=== PATIENT | female | born 1965 | race Caucasian/White ===

== ENCOUNTER 2019-04-29 16:41 | Inpatient (IN) | payer OTHER, SELFPAY ==
[~2019-04-29 16:41] MED LIST: ISOVUE-370 76%-LOCM 1 ML ONE
[2019-04-29 17:35] LABS: #Lymphocytes 2.3 thou/uL (1.20-3.40); #Monocytes 0.6 thou/uL (0.11-0.59); %Basophils 0.1 % (0.0-1.0); %Lymphocytes 29.1 % (21.0-51.0); %Monocytes 7.1 % (0.0-10.0); %Neutrophils 63.7 % (42.0-75.0); Hemoglobin 13.8 g/dL (12.0-16.0); Mean Corpuscular HGB CONC 33.9 g/dL (32.0-36.0); Mean Corpuscular Hemoglobin 37.9 pg (27.0-31.0); Mean Platelet Volume 7.5 fL (7.4-10.4); Platelet Count 306 thou/uL (130-400); RBC Distribution Width 12.7 % (11.5-14.5); Red Blood Cell (RBC) Count 3.63 mill/uL (4.20-5.40); White Blood Cell (WBC) Count 7.8 thou/uL (4.8-10.8)
[2019-04-29 17:46] LABS: MDiff Complete? YES; Macrocytosis SLIGHT = 6-15 cells (100X) (0-5/hpf); Platelet Morphology Comment Appears Adequate
--- NOTE | 2019-04-29 17:49 | CT ---
CT ANGIOGRAM THORAX WITH IV CONTRAST AND 3-D RECONSTRUCTIONS CLINICAL INDICATION: Generalized weakness. History of cancer with 40 pound weight loss over past year. COMPARISON: None FINDINGS: Pulmonary arteries: No filling defects are seen in the pulmonary arteries to suggest a pulmonary embo mattie. Aorta: The aorta is normal in caliber without evidence of an aortic dissection. Vascular calcificatio ns are seen scattered within the thoracic aorta. There is mild thickening of the camp[place] of the most proximal abdominal aorta at the level of the celiac axis and SMA origins which may be related to prom inent atherosclerotic plaque as opposed to vasculitis. There is no periaortic inflammatory changes seen. Lungs: Linear scarring versus atelectasis is present at each lung base. A calcified granuloma is seen in the right upper lobe. No discrete noncalcified pulmonary nodule, mass, or pleural effusion is seen bilaterally. Mediastinum: There is suggestion of minimal nonspecific thickening of the camp[place] of the mid and distal thoracic esophagus. Thyroid gland: A 10 mm hypodense nodule is seen in the right lobe of the thyroid gland. Osseous structures: There is a compression fracture involving the T8 vertebral body of indeterminate age. No suspicious lytic or sclerotic osseous lesions are identified. Chest wall: No abnormality visualized. Upper abdomen: Liver demonstrates diminished attenuation suggesting diffuse fatty infiltration. Calci fied granuloma is seen in the dome of the liver. Colonic diverticulosis is seen at the splenic flexure. IMPRESSION: 1. No CT evidence of a pulmonary embolus. 2. Nonspecific minimal thickening of the mid and distal esophagus. Been on clinical concern, endoscop y or esophagram on nonemergent basis can be performed. 3. Nodule right lobe of thyroid gland. Nonemergent thyroid ultrasound is recommended. 4. Fatty infiltration of the liver. 5. Colonic diverticulosis. 6. Indeterminate age compression fracture of the T8 vertebral body.
[2019-04-29 17:53] LABS: ALT (SGPT) 35 U/L (8-55); AST (SGOT) 52 U/L (5-34); Albumin 2.7 g/dL (3.5-5.0); Alkaline Phosphatase 127 U/L (40-110); Anion Gap 15 mmol/L (10-20); BUN (Urea Nitrogen) 5 mg/dL (9.8-20.1); Bilirubin, Total 0.8 mg/dL (0.2-1.2); CK (CPK) 28 U/L (29-168); Calc. Creatinine Clearance 0 mL/min (70-130); Carbon Dioxide 28 mmol/L (22-29); Chloride 76 mmol/L (98-107); Estimated GFR-MDRD Greater than 90; Globulin 3.3 g/dL (2.4-3.5); Glucose 83 mg/dL (70-105); Lipase 13 U/L (8-78)
[2019-04-29 18:04] LABS: Potassium 2.7 mmol/L (3.5-5.1); Sodium 116 mmol/L (136-145)
[2019-04-29] MEDS ORDERED: D5 1/2 NS w/20 mEq KCL 1,000 ML IV SCH (18:45)
[2019-04-29 18:50] LABS: Sodium 121 mmol/L (136-145)
[2019-04-29] MEDS ORDERED: Nicotine 14 MG PATCH ONE (20:03)
[2019-04-29 20:10] LABS: Bilirubin Negative (Negative); Blood, Urine Negative (Negative); Clarity Clear (Clear); Glucose, Urine (Dipstick) Normal (Negative); Leukocyte 75 Leu/uL (Negative); Nitrite Negative (Negative); Protein, Urine (Dipstick) Negative (Neg-Trace); RBC/HPF 0-3 HPF (0-3); Urobilinogen 6 mg/dL (Less than 2)
[2019-04-29 20:20] LABS: Bacteria/HPF 4+ HPF (None Seen)
[2019-04-29] MEDS: Nicotine 14 MG PATCH TD SCH (20:26)
[2019-04-29 22:30] LABS: Anion Gap 13 mmol/L (10-20); BUN (Urea Nitrogen) 5 mg/dL (9.8-20.1); Calc. Creatinine Clearance 0 mL/min (70-130); Calcium 7.2 mg/dL (7.8-10.44); Carbon Dioxide 26 mmol/L (22-29); Chloride 87 mmol/L (98-107); Estimated GFR-MDRD Greater than 90; Glucose 84 mg/dL (70-105); Sodium 123 mmol/L (136-145)
[2019-04-29 22:33] LABS: Potassium 2.5 mmol/L (3.5-5.1)
[2019-04-29] MEDS ORDERED: Potassium Chloride 20 MEQ TAB ONE (22:40)
[2019-04-30] MEDS ORDERED: hydrALAZINE 20 MG/ML VIAL SLOW IVP PRN (00:18)
[2019-04-30] MEDS ORDERED: Nicotine 14 MG PATCH TD SCH (00:18)
[2019-04-30] MEDS ORDERED: Dextrose 5% in Water 1,000 ML IV SCH (00:18)
[2019-04-30] MEDS ORDERED: Potassium Chloride 20 MEQ TAB PO SCH ×2 (00:18→12:00)
[2019-04-30] MEDS ORDERED: Acetaminophen 325 MG TAB ONE (00:22)
[2019-04-30] MEDS ORDERED: Magnesium 2 GM/50 ML 2 GM in Premix Bag 1 BAG IVPB SCH (00:30)
[2019-04-30] MEDS: Acetaminophen 325 MG TAB PO PRN (00:30)
[2019-04-30] MEDS ORDERED: Magnesium 2 GM/50 ML BAG (IN WATER) ONE (01:47)
[2019-04-30 01:53] LABS: Chloride 88 mmol/L (98-107); Sodium 120 mmol/L (136-145)
[2019-04-30 01:54] LABS: Calcium 7.1 mg/dL (7.8-10.44); Glucose 89 mg/dL (70-105)
[2019-04-30 01:56] LABS: Anion Gap 11 mmol/L (10-20); Carbon Dioxide 24 mmol/L (22-29)
[2019-04-30 01:58] LABS: BUN (Urea Nitrogen) Less than 4 mg/dL (9.8-20.1); Calc. Creatinine Clearance 0 mL/min (70-130); Estimated GFR-MDRD Greater than 90
--- NOTE | 2019-04-30 01:59 | HP ---
The patient is more or less in between doctors. She sees Dr. Scott, but she has not seen him in 2 years. CHIEF COMPLAINT: I just got weak and could not walk. HISTORY OF PRESENT ILLNESS: Ms. Laughlin is a pleasant 53-year-old female, who has no known past medical history. She says that she got weak and had difficulty walking and said that this started several weeks ago. She says that she has been getting progressively weaker to the point where she could barely walk to the kitchen and back. As a result, she has not been eating. She says that she has a poor appetite on top of this and says that at night, she has been having problems with nausea and vomiting and says that she will sometimes sit up at night and throw up several times, she says it is more like gagging. She denies any abdominal pain however, but does admit to having some loose stools, but no blood in the stools. She denies any dysphagia or odynophagia or any early satiety. She says that since this has happened, she has lost about 50 pounds. She says that she used to weigh 140, but now she weighs 93 pounds. As a result of her being severely weak, she called for an ambulance and brought her to the hospital. There, she was found to have a sodium of 116 and a potassium of 2.7, and she is being admitted for further evaluation. REVIEW OF SYSTEMS: All systems were reviewed and are negative except for that mentioned in the history of present illness. PAST MEDICAL HISTORY: Negative. PAST SURGICAL HISTORY: She has had a hysterectomy, a bladder resection as well as a tumor removed. ALLERGIES: NO KNOWN DRUG ALLERGIES. SOCIAL HISTORY: She is . She is a smoker and she smokes about a pack a day for the last 40 years. She occasionally drinks wine. She lives with her daughter and is a full code. She would like her sister, Madison Brannon to be her surrogate decision maker. FAMILY HISTORY: Significant for diabetes mellitus and hypertension. CURRENT MEDICATIONS: None. PHYSICAL EXAMINATION: GENERAL: She is alert and oriented, in no acute distress. VITAL SIGNS: Blood pressure is 98/60, heart rate is in the 90s, respiratory rate of 16, and she is afebrile. She is very cachectic in appearance. HEENT: Her pupils are equal, round, and reactive. Extraocular muscles are intact. Sclerae anicteric. Throat, no erythema, no exudates. NECK: No adenopathy. No bruits. LUNGS: Clear to auscultation. There is no wheezing, no rales, no rhonchi. CARDIOVASCULAR: She has a normal S1 and S2. There is no S3 or S4. No murmurs, clicks, or rubs. ABDOMEN: Soft, nontender, and nondistended. Positive for bowel sounds. No rebound or guarding. EXTREMITIES: There is no clubbing, cyanosis, or edema. She has significant muscle atrophy. NEUROLOGIC: Her cranial nerves are intact. Muscle strength is 5/5. SKIN AND INTEGUMENT: No skin changes. No rash. LABORATORY DATA: Her sodium is 116, potassium 2.7, chloride is 76, CO2 is 28, BUN of 5, creatinine 0.57, glucose is 83, alkaline phosphatase 127. Her white blood cell count 7.8, hemoglobin 13.8, hematocrit is 40.7, and platelet count is 306. She had a CT angiogram of the chest, which was negative for pulmonary embolus. There was some thickening in the mid to distal esophagus and a nodule in the right lobe of thyroid and evidence of fatty infiltration of the liver. ASSESSMENT: 1. This is a 53-year-old female, who is being admitted for severe hyponatremia as well as hypokalemia and weight loss. She will be admitted to [facility] given the degree of hyponatremia that she presented with initially. We will consult Nephrology and get urine and serum osmolality as well as urine sodium and Cortrosyn stim test in the a.m. Right now, we will place her on normal saline at a low rate. She has been given a liter of saline in the ER and her sodium has gone up to 121; therefore, we will place her on normal saline at a minimum rate until we can get further results from her urine and serum osmolality and also to be sure that we do not correct her too rapidly. We will also consult Nephrology to aid in the sodium correction. 2. Weight loss and nausea and vomiting. We will consult Gastroenterology to help evaluate this. 3. Hypokalemia. This is likely due to poor oral intake. We will go ahead and replace the potassium. 4. Protein calorie malnutrition of the moderate degree. Once she is clinically more stable, we will institute nutritional supplementation and get a dietitian consult. Job ID: [id number]
[2019-04-30 03:57] LABS: #Basophils 0.1 thou/uL (0.0-0.2); #Lymphocytes 2.2 thou/uL (1.20-3.40); #Monocytes 0.6 thou/uL (0.11-0.59); #Neutrophils 3.1 thou/uL (1.40-6.50); %Basophils 1.1 % (0.0-1.0); %Eosinophils 0.2 % (0.0-10.0); %Lymphocytes 36.6 % (21.0-51.0); %Monocytes 9.4 % (0.0-10.0); %Neutrophils 52.7 % (42.0-75.0); Hemoglobin 10.6 g/dL (12.0-16.0); Mean Corpuscular HGB CONC 35.5 g/dL (32.0-36.0); Mean Corpuscular Hemoglobin 39.3 pg (27.0-31.0); Mean Platelet Volume 7.3 fL (7.4-10.4); Platelet Count 246 thou/uL (130-400); RBC Distribution Width 12.7 % (11.5-14.5); Red Blood Cell (RBC) Count 2.71 mill/uL (4.20-5.40); White Blood Cell (WBC) Count 5.9 thou/uL (4.8-10.8)
[2019-04-30 04:13] LABS: Anion Gap 11 mmol/L (10-20); BUN (Urea Nitrogen) 5 mg/dL (9.8-20.1); Calc. Creatinine Clearance 0 mL/min (70-130); Carbon Dioxide 23 mmol/L (22-29); Chloride 88 mmol/L (98-107); Estimated GFR-MDRD Greater than 90; Glucose 91 mg/dL (70-105); Magnesium 2.4 mg/dL (1.6-2.6); Phosphorus 1.9 mg/dL (2.3-4.7); Potassium 3.1 mmol/L (3.5-5.1)
[2019-04-30 04:18] LABS: Sodium 119 mmol/L (136-145)
[2019-04-30] MEDS ORDERED: Cosyntropin 250 MCG VIAL SLOW IVP SCH ×2 (07:00→17:15)
[2019-04-30 08:04] LABS: Sodium 121 mmol/L (136-145)
[2019-04-30] MEDS ORDERED: FLU VACC QS2019-20(6MOS UP)/PF 60 MCG/0.5 ML SYRINGE IM ONE (09:45)
--- NOTE | 2019-04-30 09:49 | PDOC.HOSPP ---
- Subjective Encounter Date: 04/30/19 Encounter Time: 09:48 Subjective: Mr. Laughlin was seen today in follow-up of hyponatremia. She is awake and alert and oriented. She says she does not feel much better today than yesterday. She had a little gagging last night. - Objective Vital Signs & Weight: Weight Weight 95 lb 6.4 oz Result Diagrams: 04/30/19 03:42 04/30/19 06:46 Hospitalist ROS - Medication Medications: Active Medications Generic Name Dose Route Start Last Admin Trade Name Freq PRN Reason Stop Dose Admin Acetaminophen 650 mg 04/30/19 00:18 04/30/19 00:30 Tylenol PO 650 mg Q4H PRN Administration Headache/Fever/Mild Pain (1-3) Nicotine 14 mg 04/29/19 21:00 04/29/19 20:26 Nicoderm Patch TD 14 mg Q24HR KAITLYNN Administration - Exam Eye: PERRL Heart: RRR, no murmur, no gallops, no rubs, normal peripheral pulses Respiratory: CTAB, no wheezes, no rales, no ronchi, normal chest expansion, no tachypnea, normal percussion Gastrointestinal: soft, non-tender, non-distended, normal bowel sounds, no palpable masses, no hepatomegaly, no splenomegaly Extremities: no cyanosis Hosp A/P (1) Hyponatremia Code(s): E87.1 - HYPO-OSMOLALITY AND HYPONATREMIA Status: Acute (2) Weight loss Status: Acute (3) Nausea and vomiting Code(s): R11.2 - NAUSEA WITH VOMITING, UNSPECIFIED Status: Chronic (4) Hypokalemia Code(s): E87.6 - HYPOKALEMIA Status: Acute - Plan * Hyponatremia- suspected due to volume depletion from poor oral intake over the past month vs. SIADH ( await the urine osmol, and urine sodium results) * Serum sodium has improved- will continue as per Nephrology- IV fluids are on hold for now * Nausea and vomiting and weight loss- she had some esophageal thickening on CT scan of the abdomen * Hypokalemia- continue to replace with oral potassium * Await GI evaluation
[2019-04-30] MEDS: K-Phos Neutral 250 MG TAB PO SCH ×3 (09:50→18:14)
[2019-04-30] MEDS ORDERED: Diazepam 5 MG TAB PO PRN (10:52)
[2019-04-30 10:56] LABS: Anion Gap 12 mmol/L (10-20); BUN (Urea Nitrogen) 5 mg/dL (9.8-20.1); Calc. Creatinine Clearance 100 mL/min (70-130); Calcium 7.4 mg/dL (7.8-10.44); Carbon Dioxide 24 mmol/L (22-29); Chloride 92 mmol/L (98-107); Estimated GFR-MDRD Greater than 90; Glucose 85 mg/dL (70-105); Sodium 125 mmol/L (136-145)
[2019-04-30] MEDS ORDERED: Thiamine HCl 200 MG/2 ML VIAL IM SCH (11:00)
[2019-04-30] MEDS ORDERED: Diazepam 5 MG TAB PO SCH (11:00)
[2019-04-30 11:02] LABS: Phosphorus 1.6 mg/dL (2.3-4.7); Potassium 2.9 mmol/L (3.5-5.1)
--- NOTE | 2019-04-30 11:32 | CON ---
DATE OF CONSULTATION: 04/29/2019 TIME OF CONSULTATION: 6:00 p.m. REASON FOR CONSULTATION: Hyponatremia. HISTORY OF PRESENT ILLNESS: This is a very pleasant 53-year-old female who presented to the hospital today with complaint of weakness. The patient was noted to have a sodium of 116, so I was consulted. The patient has a history of alcohol abuse as well as drinking excessive amount of fluids. The patient denies headache, numbness, tingling, or weakness. Has lost significant weight. PAST MEDICAL HISTORY: Significant for alcohol abuse, history of hysterectomy, bladder resection, tumor removal. SOCIAL HISTORY: alcohol and smoking positive. ALLERGIES: REVIEWED. HOME MEDICATIONS: List reviewed. FAMILY HISTORY: Negative for ESRD. REVIEW OF SYSTEMS: 15-point review of system was performed and negative except for positives noted above. GENERAL: HEAD: NECK: No swelling or lumps. NOSE: No epistaxis or discharge. EYES: No diplopia or pain. RESPIRATORY: CARDIOVASCULAR: GASTROINTESTINAL: /PLASTERER TENDER: MUSCULOSKELETAL: No joint pain. NEUROPSYCHIATIC SYSTEMS: No suicidal ideation. No ideation. SKIN: Denies any rash or ulcer. CONSTITUTIONAL: No fever or chills. PHYSICAL EXAMINATION: GENERAL: The patient was awake, alert. VITAL SIGNS: Pulse 70, breathing 16, blood pressure was 100/70. GENERAL APPEARANCE AND MENTAL STATUS: Fair. HEAD/NECK: Normocephalic. Atraumatic. EYES: EOMI. No deformity. EARS: Clear. No ulcers. NOSE: Intact. No lesions. MOUTH: Clear. No discharge. THROAT: Clear. No exudate. LUNGS: Clear. No crackles. CARDIAC: S1, S2. No rub. ABDOMEN: Benign. Bowel sounds positive. GENITALIA/RECTUM: Ann absent. BACK/EXTREMITIES: Edema 0+. NEUROLOGICAL: Alert and motor intact. SKIN: LYMPHATICS: LABORATORY DATA: Sodium at the time of my consultation was 121. ASSESSMENT: 1. The patient had already received 1 L of normal saline as well as lactated Ringer. Please note the time of consultation was at 6:00 p.m. The patient was also hypophosphatemic, so at this time, I would recommend stopping all normal saline starting the patient on D5 water to lower the rate of correction to less than 6 mEq in 24 hours. This was discussed with the primary team and the emergency room doctor as well. 2. Alcohol abuse. Would recommend high-protein diet. 3. Hypokalemia. Would recommend aggressive potassium replacement. 4. Hypomagnesemia. Would recommend phosphorus and magnesium replacement. Overall prognosis is poor. Job ID: [id number]
--- NOTE | 2019-04-30 11:44 | PRG ---
DATE OF SERVICE: SUBJECTIVE: A 53-year-old female being seen for hyponatremia. The patient denied nausea, vomiting, or chest pain. OBJECTIVE: GENERAL: The patient is awake and alert. VITAL SIGNS: Pulse 75, breathing 16, blood pressure 100/70. GENERAL APPEARANCE AND MENTAL STATUS: Fair. HEAD/NECK: Normocephalic. Atraumatic. EYES: EOMI. No deformity. EARS: Clear. No ulcers. NOSE: Intact. No lesions. MOUTH: Clear. No discharge. THROAT: Clear. No exudate. LUNGS: Clear. No crackles. CARDIAC: S1, S2. No rub. ABDOMEN: Benign. Bowel sounds positive. GENITALIA/RECTUM: Ann absent. BACK/EXTREMITIES: Edema 0+. NEUROLOGICAL: Alert and motor intact. SKIN: LYMPHATICS: LABORATORY DATA: Labs showed hemoglobin . Creatinine 0.44. ASSESSMENT AND PLAN: 1. Hyponatremia, acute. We will try to lower the rate of correction to less than 10 mEq in 24 hours, which has been done. We will start the patient on D5 water to keep the sodium low. 2. Hypokalemia, recommend aggressive replacement. Hypophosphatemia because of alcohol use. Recommend high phosphorus replacement diet. No indication for hypertonic saline. Would discontinue fluid restriction. Job ID: [id number]
[2019-04-30] MEDS: Enoxaparin Sodium 30 MG/0.3 ML SYRINGE SC SCH (11:46)
[2019-04-30] MEDS ORDERED: PHOS-NAK 1 PKT PACK PO SCH (12:00)
[2019-04-30] MEDS: Dextrose 5% in Water 1,000 ML IV SCH (12:52)
--- NOTE | 2019-04-30 15:27 | CON ---
DATE OF CONSULTATION: HISTORY OF PRESENT ILLNESS: The patient is a 53-year-old female from [place], [place], who sees Dr. Scott, presented with weakness of some months' duration. No nausea or vomiting. No diarrhea. No bloody stools. Pack-a-day smoker for almost 40 years. No previous history of TB, pneumonia, or bronchial asthma. She states she has lost considerable weight at least 40+ pounds. In the ER, she was found to have serum sodium of 116. Apparently, Nephrology was consulted last night. It appears that they gave several lactated Ringer, though this morning, she is on no IV fluids and her serum sodium is 121. She denies any coughing or wheezing or chest pain. PAST SURGICAL HISTORY: Hysterectomy. CHRONIC MEDICATIONS: None. ALLERGIES: NONE. SOCIAL HISTORY: Lives in home with a daughter. REVIEW OF SYSTEMS: Ten-point negative. It is pertinent mainly for poor appetite. PHYSICAL EXAMINATION: VITAL SIGNS: Temperature 98, blood pressure 146/71, pulse 91, respiratory rate 18, sats 97% on room air. CHEST: No wheezing or crackles. CARDIAC: Normal S1 and S2. No gallops. ABDOMEN: Soft. LABORATORY DATA: Platelet count is normal. H and H 10 and 30. ASSESSMENT: 1. Severe hyponatremia, probably syndrome of inappropriate secretion, appropriate studies have been ordered. Awaiting urine sodium, cortisol level. Thyroid function is normal number. 2. Tobacco abuse, probably chronic obstructive pulmonary disease. Abnormal CT of chest, suggestive of some kind of a nonspecific thickening of the esophagus. PLAN: Pulmonary at this stage, agree with GI consultation, supportive care, PT, serial exam. Nephrology is being consulted who will probably address the serum sodium. We will follow while in the MICU. Consultation note, 70 minutes, 50% direct patient care. Job ID: [id number]
[2019-04-30 17:24] LABS: Anion Gap 6 mmol/L (10-20); BUN (Urea Nitrogen) 5 mg/dL (9.8-20.1); Calc. Creatinine Clearance 86 mL/min (70-130); Calcium 7.3 mg/dL (7.8-10.44); Carbon Dioxide 28 mmol/L (22-29); Chloride 91 mmol/L (98-107); Estimated GFR-MDRD Greater than 90; Glucose 103 mg/dL (70-105); Iron 60 ug/dL (50-170); Iron Binding Capacity, Total 96 mcg/dL (265-497); Potassium 3.2 mmol/L (3.5-5.1); Sodium 122 mmol/L (136-145)
[2019-04-30 17:27] LABS: Phosphorus 1.7 mg/dL (2.3-4.7)
[2019-04-30] MEDS: Pantoprazole 40 MG VIAL IVP SCH (17:57)
[2019-04-30] MEDS: Ondansetron ODT 4 MG TAB PO PRN (17:57)
--- NOTE | 2019-04-30 18:09 | CON ---
DATE OF CONSULTATION: I was asked to see Erendira Laughlin related for failure to thrive, occasional spitting up. Ms. Laughlin is 53-year-old female, who lives with her daughter and grandchildren in [place], [place], who reports she came to the emergency room because she just began to feel so weak. She estimates over the past couple of months, she has not really eaten well, but really looking back over the past year, she has eaten poorly. She notes that she drinks about 3 to 4 glasses of wine a day and drinks some milk and that is about it. When asked her when the last time she has had a real meal, she cannot remember. She also smokes a pack of cigarettes per day. In general, she feels fatigued. She feels weak. She feels tired and cannot do very much. She told the emergency room that she came in mainly for loss of weight about 40 pounds over the past year. Her main symptoms are weight loss, generalized weakness. No appetite. She denies any abdominal pain with eating, melena, hematochezia, or hematemesis. She has chronic cough. She spits up quite a bit, but she cannot eat. She can hold on liquids just fine. She does not really eat solids very much, states mainly because she does not have an appetite. PAST MEDICAL HISTORY: None known. MEDICATIONS: Home medications: None. Medications here; 1. Tylenol. 2. Lovenox. 3. Folic acid. 4. Apresoline. 5. Multivitamin. 6. Magnesium oxide. 7. Nicotine patch. 8. Zofran. 9. K-Phos. 10. Thiamine. ALLERGIES: NONE. PAST SURGICAL HISTORY: History of hysterectomy for fibroid uterus. SOCIAL HISTORY: A pack per day since she was 9 years old. Alcohol, wine at least 3 glasses of wine per day. Denies drinking other alcohol. She denies using drugs. REVIEW OF SYSTEMS: Please note, persistence of heart burn. PHYSICAL EXAMINATION: GENERAL: She is thin. She has temporal wasting. She is resting in bed. VITAL SIGNS: Her pulse is 112 at 1300 hours and is 94 at 1400 hours, blood pressure 99/64, and respirations 20. HEENT: Oropharynx without no lesions. There is no thrush. NECK: Supple without adenopathy. LUNGS: Clear. Decreased breath sounds at the bases. HEART: Regular rate and rhythm. ABDOMEN: Soft and nontender without any palpable hepatosplenomegaly. BREASTS: Reveal no masses or lesions. She has no axillary masses or nodes. She has no supra or infraclavicular adenopathy. She has no inguinal adenopathy. EXTREMITIES: No clubbing, cyanosis, or edema. She has good notable muscle wasting. LABORATORY DATA: White count 5.9; hemoglobin 10.6; MCV 111, elevated MCV, going back to 2014; hemoglobin was 13.8 yesterday evening when she came to the emergency room; and platelets are 246. Sodium 125, potassium 2.8, chloride 92, BUN and creatinine are 5 and 0.4, glucose 85, calcium 7.4, phosphorus is 1.6, it was 1.9 on admission, and magnesium 2. BNP 100. Cortrosyn stimulation test apparently not received yet. TSH 1. B12 was normal in 2014 and 2016, alkaline phosphatase 127, ALT 35, AST 52, total protein 6, albumin 3.3, and lipase 13. ASSESSMENT: This is a 53-year-old female, who has come in with signs of chronic malnutrition and failure to thrive, which seems to be going on for quite some time now. This does not appear to be acute event. She is drinking alcohol daily and her only really protein intake may be some milk. It does not seem she is eating more than that. She coughs up and spits up a lot and retches, but she states she was not having a problem with alcohol. She does have a slightly thickened esophagus on the CT angio of the chest. She has findings suggestive of chronic malnutrition and alcohol abuse with an elevated MCV. RECOMMENDATIONS: 1. I will start her on a PPI. 2. I will replace her magnesium and potassium and phosphorus. 3. I will watch for DTs. 4. I will start her on PPI, multivitamin, thiamine, and folate. I will try to schedule an EGD with her. The nurse states she throws up her pills. I suspect she is going to have severe reflux esophagitis, although it could not rule out malignancy. The timing of her endoscopy will depend on when her potassium and other electrolytes get fixed to the point where she can be sedated. Job ID: [id number]
[2019-04-30] MEDS: Nicotine 14 MG PATCH TD SCH (20:03)
[2019-04-30 21:43] LABS: Anion Gap 10 mmol/L (10-20); BUN (Urea Nitrogen) 5 mg/dL (9.8-20.1); Calc. Creatinine Clearance 80 mL/min (70-130); Carbon Dioxide 21 mmol/L (22-29); Chloride 94 mmol/L (98-107); Estimated GFR-MDRD Greater than 90; Glucose 74 mg/dL (70-105); Potassium 4.1 mmol/L (3.5-5.1); Sodium 121 mmol/L (136-145)
[2019-04-30] MEDS ORDERED: Sodium Chloride 0.9% 250 ML IV SCH ×2 (22:00→23:45)
[2019-04-30] MEDS: Albumin 25% 25 GM/100 ML BOT IVPB SCH (22:18)
[2019-04-30] MEDS: cefTRIAXone\\ROCEPHIN 1 GM in Sodium Chloride 0.9% 100 ML IVPB SCH (23:59)
[2019-05-01] MEDS ORDERED: Diazepam 5 MG TAB PO PRN (04:00)
[2019-05-01] MEDS: Albumin 25% 25 GM/100 ML BOT IVPB SCH (05:32)
[2019-05-01] MEDS: Dextrose 5% in Water 1,000 ML IV SCH ×2 (05:32→20:29)
[2019-05-01 06:16] LABS: Anion Gap 9 mmol/L (10-20); BUN (Urea Nitrogen) 4 mg/dL (9.8-20.1); Calc. Creatinine Clearance 81 mL/min (70-130); Calcium 7.7 mg/dL (7.8-10.44); Carbon Dioxide 23 mmol/L (22-29); Chloride 99 mmol/L (98-107); Estimated GFR-MDRD Greater than 90; Glucose 90 mg/dL (70-105); Magnesium 1.6 mg/dL (1.6-2.6); Potassium 3.2 mmol/L (3.5-5.1); Sodium 128 mmol/L (136-145)
[2019-05-01 06:23] LABS: Phosphorus 1.9 mg/dL (2.3-4.7)
[2019-05-01] MEDS ORDERED: Potassium Phosphate 12 MMOL in Sodium Chloride 0.9% 100 ML IVPB SCH (06:30)
[2019-05-01] MEDS: Enoxaparin Sodium 30 MG/0.3 ML SYRINGE SC SCH (08:13)
[2019-05-01] MEDS: K-Phos Neutral 250 MG TAB PO SCH ×3 (08:13→17:33)
[2019-05-01] MEDS: Magnesium Oxide 400 MG TAB PO SCH (08:13)
[2019-05-01] MEDS: Pantoprazole 40 MG VIAL IVP SCH ×2 (08:19→20:28)
[2019-05-01] MEDS ORDERED: Lorazepam 2 MG/ML VIAL SLOW IVP PRN (09:41)
--- NOTE | 2019-05-01 09:41 | PRG ---
DATE OF SERVICE: 05/01/2019 SUBJECTIVE: This morning, she is awake, alert, responsive. She is scheduled for endoscopy. OBJECTIVE: VITAL SIGNS: Temperature 98, blood pressure 118/75, pulse 80, respirations 18, and saturations are 100%. GENERAL: She is weak. CHEST: Decreased breath sounds. No wheezing. CARDIAC: Normal S1 and S2. No gallops. ABDOMEN: No masses. LABORATORY DATA: Sodium is 128. Urine sodium less than 20 suggesting is not SIADH, probably volume deplete hyponatremia. IMPRESSION: 1. Hyponatremia secondary to volume depletion, dehydration. 2. Cachexia with marked weight loss, abnormal CT of the abdomen. PLAN: She probably needs normal saline, IV fluids to slowly correct her sodium. Not D5. I agree with endoscopy. Pulmonary Critical Care will follow while in the MICU. Job ID: [id number]
--- NOTE | 2019-05-01 09:43 | PDOC.HOSPP ---
- Subjective Encounter Date: 05/01/19 Encounter Time: 09:42 Subjective: Ms. Laughlin was seen today in follow-up of hyponatremia, and hypokalemia. She admitted to excessive alcohol intake to Dr. Drew. She confirmed this with me this morning. She tells me she used to drink even more when she was , about 3 years ago, but weaned herself off. - Objective Vital Signs & Weight: Vital Signs (12 hours) Temp BP 05/01/19 07:28 98.9 F 05/01/19 04:00 98.8 F 05/01/19 00:00 97.1 F L 84/53 L Weight Admit Weight 95 lb 6.4 oz Weight 96 lb 1.6 oz Most Recent Monitor Data Heart Rate from ECG 93 NIBP 110/66 NIBP BP-Mean 80 Respiration from ECG 13 SpO2 100 I&O: 04/30/19 05/01/19 05/02/19 06:59 06:59 06:59 Intake Total 1550 Output Total 1150 Balance 400 Result Diagrams: 04/30/19 03:42 05/01/19 05:34 Hospitalist ROS - Medication Medications: Active Medications Generic Name Dose Route Start Last Admin Trade Name Freq PRN Reason Stop Dose Admin Acetaminophen 650 mg 04/30/19 00:18 04/30/19 00:30 Tylenol PO 650 mg Q4H PRN Administration Headache/Fever/Mild Pain (1-3) Enoxaparin Sodium 30 mg 04/30/19 09:00 05/01/19 08:13 Lovenox SC Not Given 0900 KAITLYNN Dextrose/Water 1,000 mls @ 50 mls/hr 04/30/19 12:00 05/01/19 05:32 D5w IV 1,000 mls .Q20H KAITLYNN Administration Ceftriaxone Sodium 1 gm/ 100 mls @ 200 mls/hr 05/01/19 01:00 04/30/19 23:59 Sodium Chloride IVPB 100 mls Q24HR KAITLYNN Administration Potassium Phosphate 12 mmol/ 104 mls @ 25 mls/hr 05/01/19 06:30 05/01/19 08: 06 Sodium Chloride IVPB 05/01/19 12:00 104 mls NOW KAITLYNN Administration Magnesium Oxide 400 mg 05/01/19 09:00 05/01/19 08:13 Magnesium Oxide PO Not Given DAILY KAITLYNN Nicotine 14 mg 04/29/19 21:00 04/30/19 20:03 Nicoderm Patch TD 14 mg Q24HR KAITLYNN Administration Ondansetron HCl 4 mg 04/30/19 00:18 04/30/19 17:57 Zofran Odt PO 4 mg Q6H PRN Administration Nausea/Vomiting Pantoprazole Sodium 40 mg 04/30/19 21:00 05/01/19 08:19 Protonix IVP 40 mg Q12HR KAITLYNN Administration Phosphorus 500 mg 04/30/19 08:00 05/01/19 08:13 Kphos Neutral PO 05/02/19 08:01 Not Given TID-WM KAITLYNN Sodium Chloride 10 ml 04/30/19 17:08 05/01/19 06:18 Flush - Normal Saline IVF 10 ml PRN PRN Administration Saline Flush - Exam Eye: PERRL Heart: RRR, no murmur, no gallops, no rubs, normal peripheral pulses Respiratory: CTAB, no wheezes, no rales, no ronchi, normal chest expansion Gastrointestinal: soft, non-tender, non-distended, normal bowel sounds, no palpable masses, no hepatomegaly, no splenomegaly Extremities: no cyanosis, no clubbing, no edema Hosp A/P (1) Hyponatremia Code(s): E87.1 - HYPO-OSMOLALITY AND HYPONATREMIA Status: Acute (2) Weight loss Status: Acute (3) Nausea and vomiting Code(s): R11.2 - NAUSEA WITH VOMITING, UNSPECIFIED Status: Chronic (4) Hypokalemia Code(s): E87.6 - HYPOKALEMIA Status: Acute - Plan * Hyponatremia- due to poor oral intake, and alcohol abuse * Alcohol Abuse- agree with Thiamine and Folic Acid * Nausea and vomiting and weight loss- plan is for EGD today * Hypokalemia- continue to replace with oral potassium * Consult PT/OT * She may require a stay in group home prior to discharge
[2019-05-01] MEDS ORDERED: Albuterol Sulfate 1.25 MG/3 ML NEB ONE (12:37)
[2019-05-01] MEDS ORDERED: PROPOFOL 200 MG/20 ML VIAL ONE (12:51)
[2019-05-01] MEDS ORDERED: Albuterol Sulfate 1.25 MG/3 ML NEB NEB SCH (13:00)
[2019-05-01] MEDS ORDERED: Phenylephrine HCL 10 MG/ML VIAL ONE (13:04)
[2019-05-01] MEDS ORDERED: Ondansetron HCl/PF 4 MG/2 ML Vial IVP PRN (13:42)
[2019-05-01] MEDS ORDERED: PACU-Morphine 4MG/ML VIAL SLOW IVP PRN (13:42)
[2019-05-01] MEDS ORDERED: Promethazine HCl 25 MG/ML VIAL SLOW IVP PRN (13:42)
[2019-05-01] MEDS ORDERED: Promethazine HCl 25 MG/ML VIAL IM PRN (13:42)
[2019-05-01] MEDS: Folic Acid 1 MG TAB PO SCH (14:35)
[2019-05-01] MEDS: Multivitamin W/ Minerals 1 TAB PO SCH (14:35)
[2019-05-01] MEDS: traMADol HCl 50 MG TAB PO PRN (14:35)
[2019-05-01] MEDS: Thiamine 100 MG TAB PO SCH (14:35)
--- NOTE | 2019-05-01 15:12 | PRG ---
DATE OF SERVICE: 05/01/2019 SUBJECTIVE: A 53-year-old female, being seen for hyponatremia. The patient denies nausea, vomiting, or chest pain. OBJECTIVE: GENERAL: The patient is awake and alert. VITAL SIGNS: Afebrile, pulse 75, breathing 16, blood pressure was 110/66. GENERAL APPEARANCE AND MENTAL STATUS: Fair. HEAD/NECK: Normocephalic. Atraumatic. EYES: EOMI. No deformity. EARS: Clear. No ulcers. NOSE: Intact. No lesions. MOUTH: Clear. No discharge. THROAT: Clear. No exudate. LUNGS: Clear. No crackles. CARDIAC: S1, S2. No rub. ABDOMEN: Benign. Bowel sounds positive. GENITALIA/RECTUM: Ann absent. BACK/EXTREMITIES: Edema 0+. NEUROLOGICAL: Alert and motor intact. SKIN: LYMPHATICS: LABORATORY DATA: Creatinine was 0.5. Sodium was 128. ASSESSMENT AND PLAN: 1. Hyponatremia due to syndrome of inappropriate antidiuretic hormone secretion and alcohol abuse. Agree with D5 water to keep the target sodium less than 126. I would recommend to sodium again. 2. Hypokalemia, recommend potassium replacement. Hypomagnesemia, recommend aggressive potassium and magnesium replacement. Overall prognosis is poor. The patient will need thiamine and folic acid. 3. I will sign off please reconsult as needed Thank you Job ID: [id number] [facility]
[2019-05-01 16:03] LABS: Anion Gap 13 mmol/L (10-20); BUN (Urea Nitrogen) Less than 4 mg/dL (9.8-20.1); Calc. Creatinine Clearance 73 mL/min (70-130); Calcium 8.1 mg/dL (7.8-10.44); Carbon Dioxide 22 mmol/L (22-29); Chloride 98 mmol/L (98-107); Estimated GFR-MDRD Greater than 90; Glucose 117 mg/dL (70-105); Magnesium 1.5 mg/dL (1.6-2.6); Phosphorus 3.3 mg/dL (2.3-4.7); Sodium 130 mmol/L (136-145)
--- NOTE | 2019-05-01 17:48 | RAD ---
XR Ribs Lt>=2 View STANDARD HISTORY: Chest wall pain FINDINGS: The heart size normal. The lungs are well expanded and clear. No left-sided rib abnormaliti es identified.
[2019-05-01] MEDS: Nicotine 14 MG PATCH TD SCH (20:23)
[2019-05-01] MEDS: Acetaminophen 325 MG TAB PO PRN (20:27)
[2019-05-02] MEDS: cefTRIAXone\\ROCEPHIN 1 GM in Sodium Chloride 0.9% 100 ML IVPB SCH (01:45)
[2019-05-02 08:48] LABS: Anion Gap 10 mmol/L (10-20); BUN (Urea Nitrogen) Less than 4 mg/dL (9.8-20.1); Calc. Creatinine Clearance 81 mL/min (70-130); Carbon Dioxide 24 mmol/L (22-29); Chloride 103 mmol/L (98-107); Estimated GFR-MDRD Greater than 90; Glucose 78 mg/dL (70-105); Sodium 134 mmol/L (136-145)
[2019-05-02] MEDS: Enoxaparin Sodium 30 MG/0.3 ML SYRINGE SC SCH (10:08)
[2019-05-02] MEDS: Thiamine 100 MG TAB PO SCH (10:09)
[2019-05-02] MEDS: Multivitamin W/ Minerals 1 TAB PO SCH (10:09)
[2019-05-02] MEDS: Folic Acid 1 MG TAB PO SCH (10:09)
[2019-05-02] MEDS: Pantoprazole 40 MG VIAL IVP SCH ×2 (10:09→20:46)
[2019-05-02] MEDS: Magnesium Oxide 400 MG TAB PO SCH (10:09)
[2019-05-02] MEDS: K-Phos Neutral 250 MG TAB PO SCH (10:10)
--- NOTE | 2019-05-02 17:40 | PDOC.HOSPP ---
- Subjective Encounter Date: 05/02/19 Encounter Time: 17:30 Subjective: f/u for severe ETOH abuse, hyponatremia and deconditioning. Feeling stronger and stood up with PT. Tolerating current diet. - Objective Vital Signs & Weight: Vital Signs (12 hours) Temp Pulse Ox 05/02/19 15:12 98.2 F 05/02/19 10:44 98.0 F 05/02/19 08:00 100 05/02/19 07:27 97.9 F Weight Admit Weight 95 lb 6.4 oz Weight 95 lb 3.2 oz Most Recent Monitor Data Heart Rate from ECG 97 NIBP 92/62 NIBP BP-Mean 72 Respiration from ECG 23 SpO2 100 I&O: 05/01/19 05/02/19 05/03/19 06:59 06:59 06:59 Intake Total 1550 730 Output Total 1150 700 Balance 400 30 Result Diagrams: 04/30/19 03:42 05/02/19 07:15 Additional Labs: Microbiology 04/29/19 17:07 Venous blood - Right Arm Blood Culture - Preliminary NO GROWTH AT 48 HOURS 04/29/19 17:07 Venous blood - Left Arm Blood Culture - Preliminary NO GROWTH AT 48 HOURS Laboratory Tests 04/29/19 04/29/19 04/30/19 17:07 17:07 03:42 Hgb 13.8 10.6 L Sodium Potassium Phosphorus Magnesium Vitamin B12 Folate TSH 3rd Generation 1.0776 05/01/19 05/01/19 05/01/19 05:34 05:34 05:34 Hgb Sodium 128 L Potassium 3.2 L Phosphorus 1.9 L Magnesium 1.6 Vitamin B12 920 H Folate Less than 1.60 L TSH 3rd Generation 05/01/19 15:03 Hgb Sodium 130 L Potassium 3.0 L Phosphorus 3.3 Magnesium 1.5 L Vitamin B12 Folate TSH 3rd Generation EKG Reviewed by me: Yes (Tele - SR) Hospitalist ROS - Medication Medications: Active Medications Generic Name Dose Route Start Last Admin Trade Name Freq PRN Reason Stop Dose Admin Acetaminophen 650 mg 04/30/19 00:18 05/01/19 20:27 Tylenol PO 650 mg Q4H PRN Administration Headache/Fever/Mild Pain (1-3) Enoxaparin Sodium 30 mg 04/30/19 09:00 05/02/19 10:08 Lovenox SC 30 mg 0900 KAITLYNN Administration Folic Acid 1 mg 05/01/19 09:00 05/02/19 10:09 Folvite PO 1 mg DAILY KAITLYNN Administration Dextrose/Water 1,000 mls @ 50 mls/hr 04/30/19 12:00 05/01/19 20:29 D5w IV 1,000 mls .Q20H KAITLYNN Administration Ceftriaxone Sodium 1 gm/ 100 mls @ 200 mls/hr 05/01/19 01:00 05/02/19 01:45 Sodium Chloride IVPB 100 mls Q24HR KAITLYNN Administration Iron/Minerals/Multivitamins 1 tab 05/01/19 09:00 05/02/19 10:09 Theragran M PO 1 tab DAILY KAITLYNN Administration Magnesium Oxide 400 mg 05/01/19 09:00 05/02/19 10:09 Magnesium Oxide PO 400 mg DAILY KAITLYNN Administration Nicotine 14 mg 04/29/19 21:00 05/01/19 20:23 Nicoderm Patch TD 14 mg Q24HR KAITLYNN Administration Ondansetron HCl 4 mg 04/30/19 00:18 04/30/19 17:57 Zofran Odt PO 4 mg Q6H PRN Administration Nausea/Vomiting Pantoprazole Sodium 40 mg 04/30/19 21:00 05/02/19 10:09 Protonix IVP 40 mg Q12HR KAITLYNN Administration Sodium Chloride 10 ml 04/30/19 17:08 05/01/19 20:29 Flush - Normal Saline IVF 10 ml PRN PRN Administration Saline Flush Thiamine HCl 100 mg 05/01/19 09:00 05/02/19 10:09 Thiamine PO 100 mg DAILY KAITLYNN Administration Tramadol HCl 50 mg 05/01/19 09:40 05/01/19 14:35 Ultram PO 50 mg Q6H PRN Administration Mild-Moderate Pain (1-5) - Exam General Appearance: NAD, awake alert General - other findings: frail appearing Eye: PERRL, anicteric sclera ENT: normocephalic atraumatic, no oropharyngeal lesions Neck: supple, symmetric, no JVD, no thyromegaly, no lymphadenopathy Heart: RRR, no murmur, no gallops, no rubs, normal peripheral pulses Respiratory: CTAB, no wheezes, no rales, no ronchi, normal chest expansion Gastrointestinal: soft, non-tender, non-distended, normal bowel sounds, no palpable masses Extremities: no cyanosis, no clubbing, no edema Skin: normal turgor, no lesions Neurological: cranial nerve grossly intact, no new deficit Musculoskeletal: generalized weakness, diffuse muscle atrophy Psychiatric: normal affect, A&O x 3 Hosp A/P (1) Alcohol abuse Code(s): F10.10 - ALCOHOL ABUSE, UNCOMPLICATED Status: Chronic Plan: Cessation resources, inpt treatment options (2) Hypokalemia Code(s): E87.6 - HYPOKALEMIA Status: Acute Plan: Add Klor-con 40meq BID, serial K+ monitoring (3) Hyponatremia Code(s): E87.1 - HYPO-OSMOLALITY AND HYPONATREMIA Status: Chronic Plan: Improved, serial Na+ monitoring (4) Weight loss Status: Chronic Plan: Chronic malnutrition due to ETOH abuse, Ensure High Protein TID, Regular diet - Plan PT/OT, psychosocial rehabilitation counselor, out of bed/ambulate Stable currently Add Ensure High Protein OOB with PT/OT CM for SNF options Add Klor-Con 40meq BID Continue MVI, Thiamine, Folate
[2019-05-02] MEDS: Acetaminophen 325 MG TAB PO PRN (20:45)
[2019-05-02] MEDS: Nicotine 14 MG PATCH TD SCH (20:46)
[2019-05-02] MEDS: Dextrose 5% in Water 1,000 ML IV SCH (20:47)
--- NOTE | 2019-05-02 21:12 | PRG ---
DATE OF SERVICE: 05/02/2019 SUBJECTIVE: Ms. Laughlin was in no distress. She is asleep. She awakened easily. She moved all her extremities to command. OBJECTIVE: LUNGS: Clear. HEART: Regular rhythm. ABDOMEN: Soft. EXTREMITIES: Without edema. GENERAL: She is extremely cachectic appearing. LABORATORY DATA: White count has been repeated for 2 days. Sodium is up to 134, potassium 3, chloride 103, bicarb 24, BUN 10, creatinine 0.4. IMPRESSION: Severe alcoholism with beer drinkers potomania (hyponatremia). She is close to her normal baseline. In my opinion, she could be discharged home within the next 24 hours. We will sign off. Job ID: [id number]
[2019-05-03] MEDS: cefTRIAXone\\ROCEPHIN 1 GM in Sodium Chloride 0.9% 100 ML IVPB SCH (01:00)
[2019-05-03] MEDS: Thiamine 100 MG TAB PO SCH (10:06)
[2019-05-03] MEDS: Enoxaparin Sodium 30 MG/0.3 ML SYRINGE SC SCH (10:06)
[2019-05-03] MEDS: Multivitamin W/ Minerals 1 TAB PO SCH (10:06)
[2019-05-03] MEDS: Pantoprazole 40 MG VIAL IVP SCH ×2 (10:06→20:36)
[2019-05-03] MEDS: Magnesium Oxide 400 MG TAB PO SCH (10:06)
[2019-05-03] MEDS: Folic Acid 1 MG TAB PO SCH (10:11)
[2019-05-03] MEDS: Dextrose 5% in Water 1,000 ML IV SCH ×2 (12:49→20:35)
[2019-05-03] MEDS: traMADol HCl 50 MG TAB PO PRN (17:28)
[2019-05-03] MEDS: Ondansetron ODT 4 MG TAB PO PRN (17:29)
[2019-05-03] MEDS ORDERED: Potassium Chloride 20 MEQ TAB PO SCH (18:15)
--- NOTE | 2019-05-03 18:37 | PDOC.HOSPP ---
- Subjective Encounter Date: 05/03/19 Encounter Time: 18:10 Subjective: f/u for severe ETOH abuse, hyponatremia, deconditioning. Feels ok overall. Worked briefly with PT today. - Objective Vital Signs & Weight: Vital Signs (12 hours) Temp Pulse Resp BP BP Pulse Ox 05/03/19 16:39 125/85 05/03/19 16:15 98.1 F 98 14 125/85 100 05/03/19 12:21 114/80 05/03/19 12:10 100 05/03/19 12:00 97.9 F 97 14 114/80 100 05/03/19 10:43 98.4 F 05/03/19 08:00 100 05/03/19 07:09 97.6 F Weight Admit Weight 95 lb 6.4 oz Weight 95 lb 3.2 oz Most Recent Monitor Data Heart Rate from ECG 81 NIBP 119/73 NIBP BP-Mean 88 Respiration from ECG 18 SpO2 100 I&O: 05/02/19 05/03/19 05/04/19 06:59 06:59 06:59 Intake Total 730 675 890 Output Total 700 450 Balance 30 225 890 Result Diagrams: 04/30/19 03:42 05/02/19 07:15 Additional Labs: Microbiology 04/29/19 17:07 Venous blood - Right Arm Blood Culture - Preliminary NO GROWTH AT 48 HOURS 04/29/19 17:07 Venous blood - Left Arm Blood Culture - Preliminary NO GROWTH AT 48 HOURS Laboratory Tests 04/29/19 04/29/19 04/30/19 17:07 17:07 03:42 Hgb 13.8 10.6 L Sodium Potassium Phosphorus Magnesium Vitamin B12 Folate TSH 3rd Generation 1.0776 05/01/19 05/01/19 05/01/19 05:34 05:34 05:34 Hgb Sodium 128 L Potassium 3.2 L Phosphorus 1.9 L Magnesium 1.6 Vitamin B12 920 H Folate Less than 1.60 L TSH 3rd Generation 05/01/19 15:03 Hgb Sodium 130 L Potassium 3.0 L Phosphorus 3.3 Magnesium 1.5 L Vitamin B12 Folate TSH 3rd Generation Hospitalist ROS - Medication Medications: Active Medications Generic Name Dose Route Start Last Admin Trade Name Freq PRN Reason Stop Dose Admin Acetaminophen 650 mg 04/30/19 00:18 05/02/19 20:45 Tylenol PO 650 mg Q4H PRN Administration Headache/Fever/Mild Pain (1-3) Enoxaparin Sodium 30 mg 04/30/19 09:00 05/03/19 10:06 Lovenox SC 30 mg 0900 KAITLYNN Administration Folic Acid 1 mg 05/01/19 09:00 05/03/19 10:11 Folvite PO 1 mg DAILY KAITLYNN Administration Dextrose/Water 1,000 mls @ 50 mls/hr 04/30/19 12:00 05/03/19 12:49 D5w IV 1,000 mls .Q20H KAITLYNN Administration Ceftriaxone Sodium 1 gm/ 100 mls @ 200 mls/hr 05/01/19 01:00 05/03/19 01:00 Sodium Chloride IVPB 100 mls Q24HR KAITLYNN Administration Iron/Minerals/Multivitamins 1 tab 05/01/19 09:00 05/03/19 10:06 Theragran M PO 1 tab DAILY KAITLYNN Administration Magnesium Oxide 400 mg 05/01/19 09:00 05/03/19 10:06 Magnesium Oxide PO 400 mg DAILY KAITLYNN Administration Nicotine 14 mg 04/29/19 21:00 05/02/19 20:46 Nicoderm Patch TD 14 mg Q24HR KAITLYNN Administration Ondansetron HCl 4 mg 04/30/19 00:18 05/03/19 17:29 Zofran Odt PO 4 mg Q6H PRN Administration Nausea/Vomiting Pantoprazole Sodium 40 mg 04/30/19 21:00 05/03/19 10:06 Protonix IVP 40 mg Q12HR KAITLYNN Administration Potassium Chloride 40 meq 05/03/19 18:15 05/03/19 18:15 K-Dur PO 05/03/19 20:30 40 meq NOW KAITLYNN Administration Sodium Chloride 10 ml 04/30/19 17:08 05/03/19 10:07 Flush - Normal Saline IVF 10 ml PRN PRN Administration Saline Flush Thiamine HCl 100 mg 05/01/19 09:00 05/03/19 10:06 Thiamine PO 100 mg DAILY KAITLYNN Administration Tramadol HCl 50 mg 05/01/19 09:40 05/03/19 17:28 Ultram PO 50 mg Q6H PRN Administration Mild-Moderate Pain (1-5) - Exam General Appearance: NAD, awake alert General - other findings: frail Eye: PERRL ENT: normocephalic atraumatic, no oropharyngeal lesions Neck: supple, symmetric, no JVD, no thyromegaly Heart: RRR, no murmur, no gallops, no rubs, normal peripheral pulses Respiratory: CTAB, no wheezes, no rales, no ronchi Gastrointestinal: soft, non-tender, non-distended, normal bowel sounds Extremities: no cyanosis, no clubbing, no edema Skin: normal turgor, no lesions Neurological: cranial nerve grossly intact, no new deficit Musculoskeletal: normal tone, generalized weakness Psychiatric: normal affect, A&O x 3 Hosp A/P (1) Alcohol abuse Code(s): F10.10 - ALCOHOL ABUSE, UNCOMPLICATED Status: Chronic Plan: Continue supportive mgmt, MVI, Thiamine, Folate (2) Hypokalemia Code(s): E87.6 - HYPOKALEMIA Status: Acute Plan: Continue KCL supplementation, repeat K+ level in am (3) Hyponatremia Code(s): E87.1 - HYPO-OSMOLALITY AND HYPONATREMIA Status: Chronic Plan: Improving (4) Weight loss Status: Chronic Plan: Ensure, Regular diet - Plan continue antibiotics, PT/OT, healthcare social worker, out of bed/ambulate, DVT proph w/ SCDs Stable currently Add Ensure High Protein OOB with PT/OT CM for SNF options Add Klor-Con 40meq BID Continue MVI, Thiamine, Folate Continue Rocephin another 24h then d/c AM lab: BMP
[2019-05-03] MEDS: Nicotine 14 MG PATCH TD SCH (20:36)
[2019-05-03] MEDS: Acetaminophen 325 MG TAB PO PRN (20:41)
[2019-05-04] MEDS ORDERED: cefTRIAXone\\ROCEPHIN 1 GM in Sodium Chloride 0.9% 100 ML IVPB SCH (01:00)
[2019-05-04 06:56] LABS: Anion Gap 9 mmol/L (10-20); BUN (Urea Nitrogen) 4 mg/dL (9.8-20.1); Calc. Creatinine Clearance 77 mL/min (70-130); Calcium 8.3 mg/dL (7.8-10.44); Carbon Dioxide 23 mmol/L (22-29); Chloride 106 mmol/L (98-107); Estimated GFR-MDRD Greater than 90; Glucose 81 mg/dL (70-105); Sodium 133 mmol/L (136-145)
[2019-05-04] MEDS ORDERED: Potassium Chloride 20 MEQ TAB PO SCH (08:00)
[2019-05-04] MEDS: Magnesium Oxide 400 MG TAB PO SCH (08:18)
[2019-05-04] MEDS: Multivitamin W/ Minerals 1 TAB PO SCH (08:18)
[2019-05-04] MEDS: Folic Acid 1 MG TAB PO SCH (08:18)
[2019-05-04] MEDS: Thiamine 100 MG TAB PO SCH (08:18)
[2019-05-04] MEDS: Pantoprazole 40 MG VIAL IVP SCH ×2 (08:19→20:14)
[2019-05-04] MEDS: Enoxaparin Sodium 30 MG/0.3 ML SYRINGE SC SCH (08:19)
[2019-05-04] MEDS: Dextrose 5% in Water 1,000 ML IV SCH ×2 (08:24→15:26)
--- NOTE | 2019-05-04 11:58 | PDOC.HOSPP ---
- Subjective Encounter Date: 05/04/19 Encounter Time: 12:00 Subjective: f/u for ETOH abuse, deconditioning. Feels better overall. Tolerating po intake. Voiding ok. Ambulated next to bed with PT. - Objective Vital Signs & Weight: Vital Signs (12 hours) Temp Pulse Resp BP BP Pulse Ox 05/04/19 08:15 105/69 95 05/04/19 07:38 97.8 F 70 16 105/69 95 05/04/19 04:00 98.1 F 73 20 95/64 95 05/04/19 00:39 98.0 F 73 20 96/63 97 Weight Admit Weight 95 lb 6.4 oz Weight 95 lb 3.2 oz Most Recent Monitor Data Heart Rate from ECG 81 NIBP 119/73 NIBP BP-Mean 88 Respiration from ECG 18 SpO2 100 I&O: 05/03/19 05/04/19 05/05/19 06:59 06:59 06:59 Intake Total 675 1890 Output Total 450 500 Balance 225 1390 Result Diagrams: 04/30/19 03:42 05/04/19 05:53 Additional Labs: Microbiology 04/29/19 17:07 Venous blood - Right Arm Blood Culture - Preliminary NO GROWTH AT 48 HOURS 04/29/19 17:07 Venous blood - Left Arm Blood Culture - Preliminary NO GROWTH AT 48 HOURS Laboratory Tests 04/29/19 04/29/19 04/30/19 17:07 17:07 03:42 Hgb 13.8 10.6 L Sodium Potassium Phosphorus Magnesium Vitamin B12 Folate [facility]ATED [facility] 3rd Generation 1.0776 05/01/19 05/01/19 05/01/19 05:34 05:34 05:34 Hgb Sodium 128 L Potassium 3.2 L Phosphorus 1.9 L Magnesium 1.6 Vitamin B12 920 H Folate Less than 1.60 L TSH 3rd Generation 05/01/19 05/02/19 15:03 07:15 Hgb Sodium 130 L Potassium 3.0 L 3.0 L Phosphorus 3.3 Magnesium 1.5 L Vitamin B12 Folate TSH 3rd Generation Hospitalist ROS - Medication Medications: Active Medications Generic Name Dose Route Start Last Admin Trade Name Freq PRN Reason Stop Dose Admin Acetaminophen 650 mg 04/30/19 00:18 05/03/19 20:41 Tylenol PO 650 mg Q4H PRN Administration Headache/Fever/Mild Pain (1-3) Enoxaparin Sodium 30 mg 04/30/19 09:00 05/04/19 08:19 Lovenox SC 30 mg 0900 KAITLYNN Administration Folic Acid 1 mg 05/01/19 09:00 05/04/19 08:18 Folvite PO 1 mg DAILY KAITLYNN Administration Dextrose/Water 1,000 mls @ 50 mls/hr 04/30/19 12:00 05/04/19 08:24 D5w IV 1,000 mls .Q20H KAITLYNN Administration Ceftriaxone Sodium 1 gm/ 100 mls @ 200 mls/hr 05/04/19 01:00 05/04/19 00:17 Sodium Chloride IVPB 100 mls Q24HR KAITLYNN Administration Iron/Minerals/Multivitamins 1 tab 05/01/19 09:00 05/04/19 08:18 Theragran M PO 1 tab DAILY KAITLYNN Administration Magnesium Oxide 400 mg 05/01/19 09:00 05/04/19 08:18 Magnesium Oxide PO 400 mg DAILY KAITLYNN Administration Nicotine 14 mg 04/29/19 21:00 05/03/19 20:36 Nicoderm Patch TD 14 mg Q24HR KAITLYNN Administration Ondansetron HCl 4 mg 04/30/19 00:18 05/03/19 17:29 Zofran Odt PO 4 mg Q6H PRN Administration Nausea/Vomiting Pantoprazole Sodium 40 mg 04/30/19 21:00 05/04/19 08:19 Protonix IVP 40 mg Q12HR KAITLYNN Administration Sodium Chloride 10 ml 04/30/19 17:08 05/04/19 08:19 Flush - Normal Saline IVF 10 ml PRN PRN Administration Saline Flush Thiamine HCl 100 mg 05/01/19 09:00 05/04/19 08:18 Thiamine PO 100 mg DAILY KAITLYNN Administration Tramadol HCl 50 mg 05/01/19 09:40 05/03/19 17:28 Ultram PO 50 mg Q6H PRN Administration Mild-Moderate Pain (1-5) - Exam General Appearance: NAD, awake alert Eye: PERRL, anicteric sclera ENT: normocephalic atraumatic, no oropharyngeal lesions Neck: supple, symmetric, no JVD, no thyromegaly Heart: RRR, no murmur, no gallops, no rubs, normal peripheral pulses Respiratory: CTAB, no wheezes, no rales, no ronchi Gastrointestinal: soft, non-tender, non-distended, normal bowel sounds Extremities: no cyanosis, no clubbing, no edema Skin: normal turgor, no lesions Neurological: cranial nerve grossly intact, no new deficit Musculoskeletal: normal tone, generalized weakness Psychiatric: A&O x 3, flat affect Hosp A/P (1) Alcohol abuse Code(s): F10.10 - ALCOHOL ABUSE, UNCOMPLICATED Status: Chronic Plan: Cessation resources, MVI, Thiamine, Folate (2) Hypokalemia Code(s): E87.6 - HYPOKALEMIA Status: Acute Plan: Resolved, continue routine surveillance (3) Hyponatremia Code(s): E87.1 - HYPO-OSMOLALITY AND HYPONATREMIA Status: Chronic Plan: Improved, secondary to ETOH abuse (4) Weight loss Status: Chronic Plan: Regular diet, Ensure Enlive - Plan PT/OT, licensed master social worker, out of bed/ambulate, DVT proph w/SCDs Stable currently Add Ensure Enlive OOB with PT/OT Likely will return home with [facility] D/C [facility] Continue MVI, Thiamine, Folate D/C Lucy
--- NOTE | 2019-05-04 13:01 | PRG ---
DATE OF SERVICE: 05/02/2019 SUBJECTIVE: This is a 53-year-old female, hospitalized with anorexia, weight loss of 40 pounds, anemia, etc. She had an EGD done yesterday, which revealed 2 large ulcerations in the bulb of the duodenum, duodenitis. She also has severe erosive esophagitis, ulcerations She was on pantoprazole. She is also on iron supplement, thiamine, folic acid. She feels very hungry today. She has been on clear liquid diet. She has no abdominal pain, no nausea or vomiting_. OBJECTIVE: GENERAL: She is a very fragile looking female. VITAL SIGNS: She is afebrile. Her pulse and blood pressure is normal_ LABORATORY DATA: Today, sodium 134, potassium 3, chloride 103, bicarb 24, BUN less than 4, creatinine 0.54. RECOMMENDATION: 1. Advance diet to regular diet. 2. continue PPI. 3. Follow up labs. From a GI standpoint, she can be transferred to medical floor. Job ID: [id number] [facility]
--- NOTE | 2019-05-04 14:28 | PRG ---
DATE OF SERVICE: 05/03/2019 SUBJECTIVE: A 53-year-old female, who has anorexia, weight loss, deconditioning, anemia. She has history of chronic alcohol abuse. _EGD was done and found to have ulcer in the duodenal bulb x2 and also erosive esophagitis. Over the last 24 hours, she is feeling very hungry and she wants to eat. She is eating very well. No abdominal pain. No nausea or vomiting. Her energy level is slightly getting better. She offers no complaints. OBJECTIVE: GENERAL: She is a fragile looking female, appears very comfortable. VITAL SIGNS: Stable, afebrile, pulse is 98, blood pressure 125/85. CARDIOVASCULAR SYSTEM: First and second heart sounds heard. LUNGS: Clear to auscultation. ABDOMEN: Soft and nontender. No organomegaly. No masses. Bowel sounds normal. CLINICAL IMPRESSION: 1. Chronic alcohol abuse, malnutrition, failure to thrive due to alcohol abuse. 2. Anemia secondary to alcohol abuse, MCV is more than 110. 3. Erosive esophagitis, duodenal ulcer x2. RECOMMENDATION: 1. Continue diet as tolerated. 2. Continue PPI. 3. Encourage ambulation and also oral intake. Job ID: [id number] [facility]
--- NOTE | 2019-05-04 15:10 | OP ---
DATE OF PROCEDURE: 05/01/2019 PREOPERATIVE DIAGNOSES: Anemia, abdominal pain, and weight loss. POSTOPERATIVE DIAGNOSES: 1. Duodenitis with two ulcerations in the bulb. 2. Normal stomach except for large hiatal hernia. 3. Large ulceration in the mid esophagus and erosive esophagitis in the distal esophagus. PROCEDURE PERFORMED: Esophagogastroduodenoscopy with biopsy. DESCRIPTION OF PROCEDURE: The patient was placed on her left lateral position and was given sedation by Anesthesia Department. A Pentax video gastroscope under direct vision passed down the oropharynx past the GE junction into the stomach and subsequently into the descending duodenum. The upper 3rd of the esophagus appeared normal. From the mid esophagus extending to the distal esophagus, the patient found to have large ulceration, esophagitis. She had a moderate-sized hiatal hernia. Retroflexion failed to show any pathology in fundus or cardia. In the gastric body, gastric antrum, incisura angularis, no lesion seen. The duodenal bulb mucosa markedly hyperemic and edematous, indicative of duodenitis. There were 2 ulcerations seen over the duodenal bulb. One is over the apex of the bulb and another one is around the posterior wall. In the descending duodenum, no pathology. Biopsy was obtained of the gastric antrum and gastric body. The stomach decompressed and the scope removed. RECOMMENDATION: 1. Aggressive PPI therapy. 2. The patient is advised to stop drinking alcohol completely. 3. We would recommend a repeat EGD in 2 to 3 months to assess the ulceration. Job ID: [id number] [facility]
[2019-05-04 15:11] VITALS: BMI 14.4
[2019-05-04] MEDS: Nicotine 14 MG PATCH TD SCH (20:13)
[2019-05-04] MEDS: traMADol HCl 50 MG TAB PO PRN (20:14)
[2019-05-05] MEDS: Dextrose 5% in Water 1,000 ML IV SCH ×3 (04:52→20:15)
[2019-05-05] MEDS: Enoxaparin Sodium 30 MG/0.3 ML SYRINGE SC SCH (08:32)
[2019-05-05] MEDS: Folic Acid 1 MG TAB PO SCH (08:32)
[2019-05-05] MEDS: Multivitamin W/ Minerals 1 TAB PO SCH (08:32)
[2019-05-05] MEDS: Thiamine 100 MG TAB PO SCH (08:32)
[2019-05-05] MEDS: Magnesium Oxide 400 MG TAB PO SCH (08:32)
[2019-05-05] MEDS: Pantoprazole 40 MG VIAL IVP SCH (08:32)
[2019-05-05] MEDS: Acetaminophen 325 MG TAB PO PRN (14:09)
--- NOTE | 2019-05-05 16:31 | PDOC.HOSPP ---
- Subjective Encounter Date: 05/05/19 Subjective: Pt seen says she feeling better , Denies abd pain nausea vomiting fever but says she feels weak and tired and has trouble walking due to weakness - Objective Vital Signs & Weight: Vital Signs (12 hours) Temp Pulse Resp BP BP Pulse Ox 05/05/19 12:48 99 16 98/64 100 05/05/19 12:00 98.7 F 115 H 16 96/64 100 05/05/19 07:32 97.8 F 83 18 125/83 97 Weight Admit Weight 95 lb 6.4 oz Weight 95 lb 3.2 oz Most Recent Monitor Data Heart Rate from ECG 81 NIBP 119/73 NIBP BP-Mean 88 Respiration from ECG 18 SpO2 100 I&O: 05/04/19 05/05/19 05/06/19 06:59 06:59 06:59 Intake Total 1890 1916 Output Total 500 525 Balance 1390 1391 Result Diagrams: 04/30/19 03:42 05/04/19 05:53 Hospitalist ROS - Review of Systems Constitutional: reports: weakness. denies: fever Eyes: denies: pain ENT: denies: ear pain Respiratory: denies: cough Cardiovascular: denies: chest pain Gastrointestinal: denies: nausea Genitourinary: denies: dysuria Musculoskeletal: denies: neck pain Neurological: denies: weakness - Medication Medications: Active Medications Generic Name Dose Route Start Last Admin Trade Name Freq PRN Reason Stop Dose Admin Acetaminophen 650 mg 04/30/19 00:18 05/05/19 14:09 Tylenol PO 650 mg Q4H PRN Administration Headache/Fever/Mild Pain (1-3) Enoxaparin Sodium 30 mg 04/30/19 09:00 05/05/19 08:32 Lovenox SC 30 mg 0900 KAITLYNN Administration Folic Acid 1 mg 05/01/19 09:00 05/05/19 08:32 Folvite PO 1 mg DAILY KAITLYNN Administration Dextrose/Water 1,000 mls @ 50 mls/hr 04/30/19 12:00 05/05/19 11:21 D5w IV Not Given .Q20H [facility] Iron/Minerals/Multivitamins 1 tab 05/01/19 09:00 05/05/19 08:32 Theragran M PO 1 tab DAILY KAITLYNN Administration Magnesium Oxide 400 mg 05/01/19 09:00 05/05/19 08:32 Magnesium Oxide PO 400 mg DAILY KAITLYNN Administration Nicotine 14 mg 04/29/19 21:00 05/04/19 20:13 Nicoderm Patch TD 14 mg Q24HR KAITLYNN Administration Ondansetron HCl 4 mg 04/30/19 00:18 05/03/19 17:29 Zofran Odt PO 4 mg Q6H PRN Administration Nausea/Vomiting Pantoprazole Sodium 40 mg 04/30/19 21:00 05/05/19 08:32 Protonix IVP 40 mg Q12HR KAITLYNN Administration Sodium Chloride 10 ml 04/30/19 17:08 05/04/19 08:19 Flush - Normal Saline IVF 10 ml PRN PRN Administration Saline Flush Thiamine HCl 100 mg 05/01/19 09:00 05/05/19 08:32 Thiamine PO 100 mg DAILY KAITLYNN Administration Tramadol HCl 50 mg 05/01/19 09:40 05/04/19 20:14 Ultram PO 50 mg Q6H PRN Administration Mild-Moderate Pain (1-5) - Exam General Appearance: awake alert Eye: anicteric sclera ENT: normocephalic atraumatic Neck: supple Heart: no murmur Respiratory: no wheezes Gastrointestinal: soft Extremities: no cyanosis Skin: normal turgor Musculoskeletal: normal tone Psychiatric: normal affect Hosp A/P - Plan Alcohol abuse with erosive gastritis and biopsy positive for H Pylori Gastritis will Follow GI for if patient needed H Pyrlori therapy Electrolytes abnormality with Hypokalemia/Hyponatremia Improving Marked generalized weakness with Weight loss Continue nutritional support , Continue PT evaluation Pt very weak and lethargic needs continous PT Support Does not want to go SNF/Rehab DVT/GI prophyalxis Discussed with pt and nursign staff in detail
--- NOTE | 2019-05-05 19:16 | PRG ---
DATE OF SERVICE: 05/05/2019 SUBJECTIVE: Ms. Laughlin is eating well. She is without complaints. She has had no bleeding. OBJECTIVE: VITAL SIGNS: Temperature is 98, pulse 80, and blood pressure 117/77. ABDOMEN: Soft and nontender. LABORATORY DATA: Yesterday, sodium 133, potassium 5, BUN and creatinine of . ASSESSMENT: 1. Severe reflux esophagitis, improved with PPI. 2. Ulcerations and gastritis, improved with PPI. Biopsies were positive for Helicobacter pylori. RECOMMENDATIONS: I think she can go on oral PPIs. She can go home. She is treated for 8 weeks and then probably maintenance therapy if she has continued reflux. She has been started on antibiotics. It looks like today for H pylori with clarithromycin and amoxicillin in addition to PPI. After discharge, she cannot afford the clarithromycin, could use bismuth and Flagyl. She should have an H pylori stool antigen check 2 weeks after she completes treatment with the PPI. At this time, we will sign off. If I can be of any further assistance, please do not hesitate to contact me. Since it is a 3-drug regimen, I would try to continue for 14 days. Job ID: [id number]
[2019-05-05] MEDS: AMOXicillin 250 MG CAP PO SCH (20:14)
[2019-05-05] MEDS: Clarithromycin 500 MG TAB PO SCH (20:14)
[2019-05-05] MEDS: Nicotine 14 MG PATCH TD SCH (20:14)
[2019-05-06 05:37] LABS: #Basophils 0.1 thou/uL (0.0-0.2); #Eosinphils 0.1 thou/uL (0.0-0.7); #Lymphocytes 2.1 thou/uL (1.20-3.40); #Monocytes 0.8 thou/uL (0.11-0.59); #Neutrophils 2.9 thou/uL (1.40-6.50); %Basophils 0.9 % (0.0-1.0); %Eosinophils 0.9 % (0.0-10.0); %Lymphocytes 34.7 % (21.0-51.0); %Monocytes 13.8 % (0.0-10.0); %Neutrophils 49.7 % (42.0-75.0); Hemoglobin 9.5 g/dL (12.0-16.0); Mean Corpuscular HGB CONC 34.1 g/dL (32.0-36.0); Mean Platelet Volume 6.8 fL (7.4-10.4); Platelet Count 356 thou/uL (130-400); RBC Distribution Width 12.9 % (11.5-14.5); Red Blood Cell (RBC) Count 2.44 mill/uL (4.20-5.40); White Blood Cell (WBC) Count 5.9 thou/uL (4.8-10.8)
[2019-05-06 06:07] LABS: Anion Gap 9 mmol/L (10-20); BUN (Urea Nitrogen) 5 mg/dL (9.8-20.1); Calc. Creatinine Clearance 76 mL/min (70-130); Calcium 8.2 mg/dL (7.8-10.44); Carbon Dioxide 23 mmol/L (22-29); Chloride 107 mmol/L (98-107); Estimated GFR-MDRD Greater than 90; Glucose 85 mg/dL (70-105); Potassium 4.6 mmol/L (3.5-5.1); Sodium 134 mmol/L (136-145)
[2019-05-06] MEDS: Enoxaparin Sodium 30 MG/0.3 ML SYRINGE SC SCH (07:53)
[2019-05-06] MEDS: Clarithromycin 500 MG TAB PO SCH (07:53)
[2019-05-06] MEDS: AMOXicillin 250 MG CAP PO SCH (07:53)
[2019-05-06] MEDS: Folic Acid 1 MG TAB PO SCH (07:53)
[2019-05-06] MEDS: Magnesium Oxide 400 MG TAB PO SCH (07:53)
[2019-05-06] MEDS: Thiamine 100 MG TAB PO SCH (07:54)
[2019-05-06] MEDS: Multivitamin W/ Minerals 1 TAB PO SCH (07:54)
[2019-05-06] MEDS: Dextrose 5% in Water 1,000 ML IV SCH (11:07)
[2019-05-06 16:13] VITALS: TEMP 98.7
[2019-05-06 17:40] VITALS: BP 109/65
--- NOTE | 2019-05-06 23:38 | DIS ---
DATE OF ADMISSION: 04/29/2019 DATE OF DISCHARGE: 05/06/2019 DISCHARGE DIAGNOSES: 1. Alcohol abuse. 2. Chronic anemia. 3. Helicobacter pylori associated erosive gastritis. 4. Electrolyte abnormality. 5. Mild generalized weakness. PHYSICAL EXAMINATION: VITAL SIGNS: Blood pressure 109/65, temperature 98.7, pulse 94, respirations 16, oxygen saturation 96%. GENERAL: The patient is alert, awake, and oriented, in no distress. CHEST: Normal vesicular breathing. HEART: Sounds normal. ABDOMEN: Soft, benign. No tenderness, no organomegaly. EXTREMITIES: Negative edema of feet. No rash. No cyanosis. LABORATORY DATA: CBC unremarkable on admission except hemoglobin 9.5. BMP unremarkable on admission. UA, white blood cells 7 to 10. EGD, biopsy positive for chronic gastritis with occasional H. pylori. Rib x-ray negative for acute findings. HOSPITAL SUMMARY: Patient presented with generalized weakness, tiredness, lethargy, poor appetite, nausea and vomiting. Patient was evaluated by GI. Patient performed EGD which was positive for H. pylori. The patient also had electrolyte abnormalities with mild generalized weakness in the beginning. Patient's condition improved in total. Patient today walked with physical therapy. Also patient tolerating diet. No acute issues. GI cleared the patient to discharge. Patient given prescription for H. pylori. Recommended to continue 14 days of therapy and to follow up PCP and GI as an outpatient. Patient discharged in a stable condition. Job ID: [id number]
--- NOTE | 2019-05-12 07:07 | PQF ---
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 Clinical indicators are provided on the bottom of this form for your review Please check appropriate box(s): [ ] Hyponatremia due to Volume Depletion [ ] Hyponatremia due to SIADH (Syndrome of Inappropriate Secretion of Antidiuretic Hormone) [ ] Other diagnosis [ ] Unable to determine CLINICAL INDICATORS - SIGNS / SYMPTOMS / LABS - Hyponatremia-suspected due to volume depletion from poor oral intake over the past moth vs SIADH-Hospital PN, 04/30, Young Soria MD - Severe Hyponatremia, probly syndrome of inappropriate secretion-Consultation report, Chela Santos MD - Hyponatremia, Acute- Progress note, 05/01, Timur Garrido MD - Hyponatremia secondary to volume depletion, dehydration-Progress note, 05/01, Chela Santos MD - Urine Sodium less than 20 suggesting is not SIADH, probably volume deplete hyponatremia-Progress note, 05/01, Chela Santos MD RISK FACTORS - Protein calorie malnutrition of the moderate degree-H&P, 04/30, Young Soria MD - Alcohol abuse- Hospital PN, 05/02, Floyd Pinzon DO TREATMENTS: -Sodium Chloride.IV MAR, 04/30 (This form is maintained as a part of the permanent medical record) 2014 [employer]. All Rights Reserved [employer] [not provided] [not provided] BERNABE
== END 2019-05-06 19:04 | disposition home or self-care (01) | DRG 641 ==
LOC: ERS 16:41 → ERHOLD 18:57 → IMCU/EMU 04-30 08:24 → T4-A 05-03 11:57
PROVIDERS: ADMIT Internal Medicine; ATTEND Internal Medicine
PROC: 0DB78ZX Excision of Stomach, Pylorus, Via Natural or Artificial Opening Endoscopic, Diagnostic (ICD-10-PCS; principal; 2019-05-01)
DX: E87.1 Hypo-osmolality and hyponatremia (principal); Z68.1 Body mass index [BMI] 19.9 or less, adult; R64 Cachexia; E44.0 Moderate protein-calorie malnutrition; K22.10 Ulcer of esophagus without bleeding; E87.0 Hyperosmolality and hypernatremia; F10.10 Alcohol abuse, uncomplicated; D63.8 Anemia in other chronic diseases classified elsewhere; K29.60 Other gastritis without bleeding; F17.200 Nicotine dependence, unspecified, uncomplicated; R62.7 Adult failure to thrive; E87.6 Hypokalemia; E83.42 Hypomagnesemia; E86.0 Dehydration; E83.39 Other disorders of phosphorus metabolism; K44.9 Diaphragmatic hernia without obstruction or gangrene; J44.9 Chronic obstructive pulmonary disease, unspecified; K29.80 Duodenitis without bleeding; K26.9 Duodenal ulcer, unspecified as acute or chronic, without hemorrhage or perforation; Z90.710 Acquired absence of both cervix and uterus
CPT/HCPCS: 36415; 71275; 80048; 80053; 80400; 81003; 81015; 82550; 82607; 82746; 83540; 83550; 83690; 83735; 83880; 83930; 83935; 84100; 84300; 84443; 84484; 85025; 87040; 88305; 88312; 90471; 90686; 90732; 93005; 94640; 96361; 96365; 96366; C9113; G0008; G0009; J0696; J1650; J2370; J2704; J3411; J3475; J3490; P9047; Q0162; Q9966

== ENCOUNTER 2022-09-19 10:43 | Outpatient (CLI) | payer OTHER | END 2022-09-19 10:44 | disposition home or self-care (01) | LOC: BICRAD 10:43 | PROVIDERS: ATTEND Preventive Medicine Occupational Medicine | DX: M25.561 Pain in right knee (principal); M47.26 Other spondylosis with radiculopathy, lumbar region; M51.37 Other intervertebral disc degeneration, lumbosacral region; M89.38 Hypertrophy of bone, other site | CPT/HCPCS: 72100 ==